=== PATIENT | female | born 1985 | race Caucasian/White ===

== ENCOUNTER 2024-04-18 11:30 | Emergency (ER) | payer BC, SELFPAY ==
[2024-04-18 11:32] VITALS: BP 114/77
[2024-04-18 11:55] VITALS: BP 114/79
[2024-04-18 12:00] VITALS: BP 132/89
--- NOTE | 2024-04-18 12:18 | ED.GENMED ---
History of Present Illness
General
Chief Complaint: Chest Pain
Source: patient
Exam Limitations: none
Time Seen by Provider: 04/18/24 12:17
Nursing documentation reviewed up to this point in time: agreed with
Travel History
Have you had any contact with someone who has COVID-19?: No
Do you have any symptoms of coronavirus? Fever > 100 degrees, chills, cough, shortness of breath, sore throat, loss of taste or smell, muscle aches, or headache?: No
History of Present Illness
History of Present Illness:
38-year-old female with history of anxiety, migraines, preventive bilateral mastectomy 09/2021, breast implants 01/2022, presents stating she awakened 7:30 a.m. feeling 'a little dizzy' and intermittently the room 'goes swoosh for a second,' since.
No room spinning, lightheadedness or weakness. Denies headache.
Also felt sharp pains right upper chest wall that goes up and over her right shoulder to upper back area, constant dull ache, worse with deep breaths. Denies SOB, fever.
She did start working out for first time in a while lifting weights with arms and legs 3 days ago and hasn't done any more since.
Past History
Past History
ED Past Medical History: Other (Migraines); Negative Cancer (BRCA gene)
ED Past Surgical History: Other (Prophylactic mastectomy)
Social History
Tobacco: Non-smoker
Alcohol: Occasional
Drug: None
Personal:
Living: with family
Employment: Employed
Family History
Family History: Cancer
Review of Systems
Review of Systems
Allergies reviewed?: Yes
All Other Systems: ROS reviewed and negative except as documented in HPI and ROS
Constitutional: Denies fever or fatigue
Respiratory: Denies trouble breathing
Cardiac: Reports chest pain (right chest wall); Denies diaphoresis or palpitations
ABD/GI: Denies abdominal pain or nausea
: Denies dysuria, frequency or difficulty voiding
Musculoskeletal: Reports back pain (R upper chest wall pain 'wraps up and over my shoulder to my upper back'); Denies neck pain
Skin: Reports no symptoms
Neurological: Reports no symptoms
Phy Exam
Physical Exam
Physical Exam:
GENERAL: No acute distress. A&Ox3.
CONSTITUTIONAL: Afebrile.
EYES: clear, conjunctivae normal
Neck: Supple
ENMT: moist mucus membranes, Pharynx nl
RESPIRATORY: Regular respirations, nonlabored, lungs clear.
CARDIOVASCULAR: Regular rate and rhythm, no murmurs, no rubs.
GI: Soft, nontender, normal BS
MUSCULOSKELETAL: R upper chest wall tender to palpation which immediately reproduces pt's pain. neck, shoulder and upper back non tender to palpation. Full ROM of neck and upper extremities. Moves with ease. Well perfused.
SKIN: Warm, dry, pink
PSYCH: Normal mood and affect. Well kept, interactive and appropriate
NEUROLOGIC: Awake, alert and oriented. No focal neurological deficits
Scores
Heart Score for Chest Pain Patients
STEMI patient?: Not applicable
Course
Orders/Labs/Results
Orders:
Orders
04/18/24 11:31
Electrocardiogram (*1) Urgent
Reason for Study: Chest Pain
EKG- Treatment ONCE
04/18/24 12:27
CR Chest - 2 Views Urgent
Comment:
Reason For Exam: chest pain
04/18/24 12:33
Complete Blood Count/With Diff Urgent
Comprehensive Metabolic Panel Urgent
D-Dimer Urgent
Troponin I Urgent
Abnormal Lab Results
04/18/24
12:33
RBC 6.01 H 10^6/uL
(4.20-5.40)
Hgb 11.9 L g/dL
(12.0-16.0)
Hct 36.5 L %
(37.0-47.0)
MCV 60.7 L fL
(81.0-99.0)
MCH 19.8 L pg
(27.0-31.0)
MCHC 32.6 L g/dL
(33.0-37.0)
RDW 16.0 H %
(11.5-14.5)
Plt Count 444 H 10^3/uL
(130-400)
MPV 10.5 H fL
(7.4-10.4)
Chloride 109 H mmol/L
(98-107)
BUN 20 H mg/dl
(7-17)
Glucose 115 H mg/dl
(70-99)
04/18/24 12:33
04/18/24 12:33
Vital Signs
Initial and Last Documented VS:
Initial Vital Signs
Temp Pulse Resp BP Pulse Ox
99.7 F 105 16 114/77 99
04/18/24 11:32 04/18/24 11:32 04/18/24 11:32 04/18/24 11:32 04/18/24 11:32
Last Documented Vital Signs
Temp Pulse Resp BP Pulse Ox
99.7 F 73 14 111/68 96
04/18/24 11:32 04/18/24 13:15 04/18/24 13:15 04/18/24 13:00 04/18/24 13:15
MDM/Problems Addressed
Differential Diagnosis Includes:
musculoskeletal (pectoral) muscle strain, PE, cardicac
MDM/Problems Addressed:
38-year-old female with history of anxiety, migraines, preventive bilateral mastectomy 09/2021, breast implants 01/2022, presents stating she awakened 7:30 a.m. feeling 'a little dizzy' and intermittently the room 'goes swoosh for a second,' since.
No room spinning, lightheadedness or weakness. Denies headache.
Also felt sharp pains right upper chest wall that goes up and over her right shoulder to upper back area, constant dull ache, worse with deep breaths. Denies SOB, fever.
She did start working out for first time in a while lifting weights with arms and legs 3 days ago and hasn't done any more since.
NAD, EKG NSR
Pain reproducible with palpation of right upper chest wall, no tenderness about the shoulder, neck or upper back
1:14 PM
CBC with no clinically significant abnormality
CMP: No clinically significant abnormality
Troponin normal
D-dimer normal
CXR NAD
Pt stable for discharge, most likely musculoskeletal pain, R pectoral muscle.
*Critical Care Note
Total Time (30-74mins, 75-104mins- exclusive of procedures): Not Applicable
ED Attending Note
-
Portions of this chart may have been created with voice recognition software.� Occasional wrong word or��sound alike� substitutions may have occurred due to the inherent limitations of voice recognition software.
Discharge Plan
Departure
Patient Disposition: Home (Routine Discharge)
Date of Disposition: 04/18/24
Time of Disposition: 13:56
Patient with high blood pressure during this ER visit?: No
Condition: Good
Discharge Problem:
Muscle strain of chest wall
Instructions: Chest Pain That Is Not Caused by the Heart (DC), Muscle Strain (DC)
Prescriptions:
No Action
ibuprofen 600 MG tablet
600 mg PO Q6HPRN PRN (Reason: pain) Qty: 20 0RF
Referrals:
Veronica Flaherty MD [Family Provider] - As needed
Activity Restrictions/Additional Instructions:
As we discussed nothing worrisome in your workup here today.
Treat this as pectoral muscle strain.
Ibuprofen 600 mg (with food) every 6 hours as needed for pain.
Rest for a week before lifting weights, maybe start with pocket assembler weights, then progress.
Interventions
Interventions:
*Risk Screen - Suicide Last Done: 04/18/24 12:43
*General Assessment Last Done: 04/18/24 11:32
*Neglect/Abuse Screening Last Done: 04/18/24 12:43
ED- Fall Risk Assessment Last Done: 04/18/24 14:23
*ED COVID-19 Vaccine History Last Done: 04/18/24 11:32
*Nursing Disposition Last Done: 04/18/24 14:23
ED- Cardiac Assessment Last Done: 04/18/24 12:43
Discharge Date and Time
Discharge Date/Time: 04/18/24 14:24
Print Language: KAZAKH
[2024-04-18 12:42] LABS: % Basophils 0.7 % (0-2); % Immature Granulocytes 0.4 % (0-0.5); % Lymphocytes 30.7 % (20.5-51.1); % Monocytes 4.3 % (1.7-9.3); % Neutrophils 61.9 % (42.2-75.2); Absolute Basophils 0.1 10^3/uL (0-0.2); Absolute Eosinophils 0.2 10^3/uL (0-0.7); Absolute Lymphocytes 2.9 10^3/uL (1.2-3.4); Absolute Monocytes 0.4 10^3/uL (0.1-0.6); Absolute Neutrophils 5.9 10^3/uL (1.4-6.5); Hematocrit 36.5 % (37.0-47.0); Hemoglobin 11.9 g/dL (12.0-16.0); Mean Corp Hgb Conc. 32.6 g/dL (33.0-37.0); Mean Corpuscular Hgb 19.8 pg (27.0-31.0); Mean Corpuscular Volume 60.7 fL (81.0-99.0); Mean Platelet Volume 10.5 fL (7.4-10.4); Nucleated Red Blood Cells % 0 %; Platelet Count 444 10^3/uL (130-400); Red Blood Cell Count 6.01 10^6/uL (4.20-5.40); White Blood Cell Count 9.6 10^3/uL (4.8-10.8)
[2024-04-18 12:51] LABS: ALT (SGPT) 16 U/L (0-35); AST (SGOT) 17 U/L (14-36); Albumin 4.3 g/dl (3.5-5.0); Alkaline Phosphatase 71 U/L (38-126); Blood Urea Nitrogen 20 mg/dl (7-17); Calcium 9.4 mg/dl (8.4-10.2); Carbon Dioxide 22 mmol/L (22-30); Chloride 109 mmol/L (98-107); Glucose 115 mg/dl (70-99); Potassium 4.4 mmol/L (3.5-5.1); Sodium 140 mmol/L (135-145); Total Bilirubin 0.4 mg/dl (0.2-1.3); Total Protein 7.2 g/dl (6.3-8.2); eGFR > 60.00
[2024-04-18 13:00] VITALS: BP 111/68
[2024-04-18 13:03] LABS: Troponin I < 0.012 ng/ml
[2024-04-18 13:06] LABS: D-Dimer < 0.27 ug/mlFEU (0.00-0.50)
== END 2024-04-18 14:24 | disposition home or self-care (01) ==
LOC: EMR 11:30
PROVIDERS: Registered Nurse; EMERGENCY PHYSICIAN Emergency Medicine; FAMILY PHYSICIAN Family Medicine
DX: S29.011A Strain of muscle and tendon of front wall of thorax, initial encounter (principal); X50.0XXA Overexertion from strenuous movement or load, initial encounter
CPT/HCPCS: 99285; 71046; 80053; 84484; 85025; 85379; 93005

== ENCOUNTER 2024-10-22 08:33 | Emergency (ER) | payer BC, SELFPAY ==
[2024-10-22 08:40] VITALS: BP 113/73
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
[2024-10-22] MEDS: MOTRIN 600 MG PO (08:54)
== END 2024-10-22 10:44 | disposition home or self-care (01) ==
LOC: EMR 08:33
PROVIDERS: EMERGENCY PHYSICIAN Emergency Medicine; FAMILY PHYSICIAN Family Medicine
DX: S52.202A Unspecified fracture of shaft of left ulna, initial encounter for closed fracture (principal); S50.11XA Contusion of right forearm, initial encounter; W18.39XA Other fall on same level, initial encounter; G43.909 Migraine, unspecified, not intractable, without status migrainosus
CPT/HCPCS: 99283; 29125; 73090; 73110